=== PATIENT | female | born 1985 | race Caucasian/White ===

== ENCOUNTER 2024-07-29 12:24 | Emergency (ER) | payer OTHER, SELFPAY ==
[2024-07-29] VITALS (11 sets, daily range): BP systolic 93–133; BP diastolic 55–75; PULSE 94–208; RESP 14–22; TEMP 36.9; O2SAT 98–100; BMI 27.4
--- NOTE | 2024-07-29 12:30 | EKG_ITS ---
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
--- NOTE | 2024-07-29 12:30 | DI.RAD.S_ITS ---
PROCEDURE: XR CHEST 1V INDICATIONS: chest pain TECHNIQUE: One view of the chest was acquired. COMPARISON: None. FINDINGS: Surgical changes and devices: None. Lungs and pleura: Lungs are clear. No pleural effusions or pneumothorax. Mediastinum: Mediastinal contours appear normal. Heart size is normal. Bones and chest wall: No suspicious bony lesions. Overlying soft tissues appear unremarkable. IMPRESSION: No acute cardiopulmonary pathology. Dictated by: Richard Jacob M.D. on 07/29/2024 at 12:57 Approved by: Richard Jacob M.D. on 07/29/2024 at 12:57
[2024-07-29 12:44] LABS: Add Manual Diff / Slide Review NO; Basophils Absolute Auto 100 /uL (0-100); Basophils Percent Auto 0.9 % (0-2); Eosinophils Absolute Auto 100 /uL (0-450); Eosinophils Percent Auto 0.8 % (2-4); Hemoglobin 12.9 g/dL (12.0-16.0); Lymphocytes Absolute Auto 2600 /uL (1100-4500); Lymphocytes Percent Auto 31.7 % (25-40); Mean Corpuscular HGB Conc 33.1 % (30-36); Mean Corpuscular Hemoglobin 28.2 PG (26-34); Mean Corpuscular Volume 85.3 fL (80-100); Monocytes Absolute Auto 600 /uL (0-900); Monocytes Percent Auto 7.8 % (3-14); Neutrophils Absolute Auto 4800 /uL (1500-7000); Neutrophils Percent Auto 58.8 % (50-75); Platelet Count 273 X10^3/uL (150-400); Red Blood Cell Count 4.57 X10^6/uL (4.0-5.2); White Blood Cell Count 8.1 X10^3/uL (4.5-11.0)
[2024-07-29] MEDS: ADENOSINE 6 MG/2 ML VIAL IV (12:44)
[2024-07-29 12:51] LABS: INR 1.1 (0.9-1.3); Prothrombin Time 12.9 SECONDS (9.4-12.5)
[2024-07-29 12:54] LABS: PTT Partial Thromboplastin Tim 35 SECONDS (25.1-36.5)
--- NOTE | 2024-07-29 12:55 | EKG_ITS ---
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
[2024-07-29 12:56] LABS: Alanine Aminotransferase 59 IU/L (<35); Albumin 4.4 g/dL (3.5-5.0); Albumin Globulin Ratio 1.3 (1.0-2.8); Alkaline Phosphatase 84 U/L (38-126); Aspartate Aminotransferase 54 IU/L (14-36); BUN Creatinine Ratio 9.1 (6-22); Bilirubin Total 0.5 mg/dL (0.2-1.3); Blood Urea Nitrogen 6 mg/dL (7-17); Calcium 8.8 mg/dL (8.4-10.2); Carbon Dioxide 26 mmol/L (22-32); Chloride 102 mmol/L (98-107); Creatine Kinase 94 U/L (30-135); Estimated Glomerular Filt Rate > 60 mL/min (>60); Globulin 3.4 g/dL (1.7-4.1); Glucose 134 mg/dL (70-100); HEMOLYSIS < 15 (0-50); Lipase 60 U/L (23-300); Magnesium 1.8 mg/dL (1.6-2.3); Potassium 3.3 mmol/L (3.4-5.1); Sodium 138 mmol/L (137-145); Total Protein 7.8 g/dL (6.3-8.2)
--- NOTE | 2024-07-29 13:00 | ED.GENADULT ---
HPI - General Adult General Chief complaint: Chest Pain Stated complaint: rapid heart beat x 2 days Time Seen by Provider: 07/29/24 12:33 Source: patient Mode of arrival: Ambulatory History of Present Illness HPI narrative: 39-year-old woman with occasional episodes of SVT typically lasting minutes and resolved with breathing techniques comes in with a rapid heart rate that has been for around 56 hours. She is complaining of some chest pressure and fatigue developing over the last couple of hours prompted the ER visit. No nausea, vomiting, shortness of breath, lower extremity edema. Related Data Previous Rx's Medication Instructions Recorded furosemide 20 mg tablet 20 mg PO DAILY #5 tabs 07/29/24 Allergies Allergy/AdvReac Type Severity Reaction Status Date / Time Penicillins Allergy Unknown Verified 07/29/24 13:34 Review of Systems Review of Systems Narrative: Pertinent positive and negative findings as per HPI Patient History Social History Smoking Status: Never smoker Smoking Status: Never smoker Exam Initial Vital Signs Initial Vital Signs: Vital Signs Temperature 98.5 F 07/29/24 12:33 Pulse Rate 208 H 07/29/24 12:33 Respiratory Rate 17 07/29/24 12:33 Blood Pressure 133/75 07/29/24 12:33 Pulse Oximetry 100 07/29/24 12:33 Oxygen Delivery Method Room Air 07/29/24 12:33 General: Healthy appearing, in no acute distress. Able to give a complete and coherent history. Well-nourished well-developed HEENT: Moist mucous membranes, normal sclera with reactive pupils, Neck: No JVD, supple Respiratory: Lungs are clear to auscultation, no wheezing no rales no rhonchi. Full and symmetrical air movement Cardiac: Significant tachycardia Abdomen: Soft, nontender, no rebound or guarding, no flank pain Skin: Warm and dry, no rashes Neurologic: Grossly neurologically intact with no obvious asymmetries or abnormalities Extremities: No trauma, well perfused Psych: Cooperative, appropriate insight and affect Course Orders Ordered: ED Orders 07/29/24 12:30 XR chest 1V Stat Complete Blood Count AUTO DIFF Stat Comprehensive Metabolic Panel Stat Lipase Stat Magnesium Stat NT-proBNP (BNP-Adult 18+) Stat PTT Partial Thromboplastin Sesar Stat Prothrombin Time INR Stat Troponin & CK Cardiac Panel Stat EKG-12 Lead Stat Discontinued Medications Adenosine (Adenosine 6 Mg/2 Ml Vial) 6 mg IV NOW ONE Stop: 07/29/24 12:40 Last Admin: 07/29/24 12:44 Dose: 6 mg Documented By: MARYBETH Adenosine (Adenosine 6 Mg/2 Ml Vial) 12 mg IV NOW ONE Stop: 07/29/24 12:40 Aspirin (Aspirin 81 Mg Chew Tab) 324 mg PO NOW ONE Stop: 07/29/24 12:31 Vital Signs Vital signs: Vital Signs - 8 hr 07/29/24 12:33 Temperature 98.5 F Pulse Rate 208 H Respiratory Rate 17 Blood Pressure 133/75 Pulse Oximetry 100 Oxygen Delivery Method Room Air Medical Decision Making Lab Data 07/29/24 12:20 07/29/24 12:20 Labs: Lab Results 07/29/24 Range/Units 12:20 WBC 8.1 (4.5-11.0) X10^3/uL RBC 4.57 (4.0-5.2) X10^6/uL Hgb 12.9 (12.0-16.0) g/dL Hct 39.0 (36-46) % MCV 85.3 (80-100) fL MCH 28.2 (26-34) PG MCHC 33.1 (30-36) % RDW 15.0 H (11.6-14.8) % Plt Count 273 (150-400) X10^3/uL Neut % (Auto) 58.8 (50-75) % Lymph % (Auto) 31.7 (25-40) % [place] % (Auto) 7.8 (3-14) % Eos % (Auto) 0.8 L (2-4) % Baso % (Auto) 0.9 (0-2) % Neut # (Auto) 4800 (3285-6970) /uL Lymph # (Auto) 2600 (0386-7458) /uL [place] # (Auto) 600 (0-900) /uL Eos # (Auto) 100 (0-450) /uL Baso # (Auto) 100 (0-100) /uL PT 12.9 H (9.4-12.5) SECONDS INR 1.1 (0.9-1.3) APTT 35 (25.1-36.5) SECONDS Sodium 138 (137-145) mmol/L Potassium 3.3 L (3.4-5.1) mmol/L Chloride 102 (98-107) mmol/L Carbon Dioxide 26 (22-32) mmol/L BUN 6 L (7-17) mg/dL Creatinine 0.66 (0.52-1.04) mg/dL Estimated GFR > 60 (>60) mL/min BUN/Creatinine Ratio 9.1 (6-22) Glucose 134 H (70-100) mg/dL Calcium 8.8 (8.4-10.2) mg/dL Magnesium 1.8 (1.6-2.3) mg/dL Total Bilirubin 0.5 (0.2-1.3) mg/dL AST 54 H (14-36) IU/L ALT 59 H (<35) IU/L Alkaline Phosphatase 84 (38-126) U/L Total Creatine Kinase 94 (30-135) U/L Total Protein 7.8 (6.3-8.2) g/dL Albumin 4.4 (3.5-5.0) g/dL Globulin 3.4 (1.7-4.1) g/dL Albumin/Globulin Ratio 1.3 (1.0-2.8) Lipase 60 (23-300) U/L [facility] Narrative Medical decision making narrative: CC: SVT currently rate of 207 present for almost 56 hours Complicating co-morbidities: No medications, has never had an episode of SVT last so long Data collected from: patient Social determinants of health that may influence the patients condition: Patient is currently visiting from out of town Differential considered: SVT, atrial fibrillation, WPW with aberrancy Exam documented above, pertinent findings include: Aside from heart rate over 200, exam is entirely unremarkable. No secondary signs or symptoms of congestive heart failure Lab Test results independently reviewed as above. Pertinent findings: CBC is unremarkable Chemistries show slightly low potassium at 3.3. Renal function is appropriate. Mild elevation to AST at 54 and ALT at 59. Lipase is normal Troponin is undetectable ProBNP is elevated at 2530 Independently reviewed EKG: Initial EKG shows heart rate of 207, supraventricular tachycardia After cardioversion, she is down to sinus tachycardia at a rate of 107 Imaging studies independently reviewed: Chest x-ray is unremarkable Treatments: 6 mg of IV adenosine is given with SVT interruption and returned to normal sinus rhythm Discussion: 39-year-old woman comes in with more than 48 hours of SVT in the greater than 200 range. We attempted vagal maneuvers and elevating her legs with no effect. She was given 6 mg of IV adenosine which converted her back to sinus rhythm. Blood work shows no evidence of acute coronary syndrome or elevated troponin however her BNP is slightly elevated and I suspect that that is rate-related bump. She does not have significant signs of congestive heart failure on her physical exam. He is findings were reviewed with her, she is given 20 mg of IV Lasix in the emergency department and we will give her an additional 5 tablets of Lasix for the next 5 days. With normal renal function and such a short course I do not think that additional potassium supplementation will be required. Did suggest that if she has recurrent SVT with a heart rate this high she probably should not wait any longer than 24 hours before seeking help. She notes that she usually can easily count her heart rate, but was not sure if it was fast because she could not find it to count it. I pointed out that means it is going really fast. She will follow up with your primary care provider, she is currently traveling and heading home. There was no indication for hospitalization or further workup at this time Discharge Plan Departure Patient Disposition: Home Clinical Impression: Sustained SVT, Elevated brain natriuretic peptide (BNP) level Instructions: Paroxysmal Supraventricular Tachycardia, DI for Heart Failure Activity Restrictions/Additional Instructions: Thank you for coming in today You were in a supraventricular tachycardia at a rate over 200 for 2.5 days. That is pretty impressive. We used 6 mg of adenosine to have your rhythm. And restart into a normal sinus rhythm. You tolerated this nicely. In checking blood work I am seeing no signs of cardiac injury or damage however there is suggestion that your heart was going fast enough that fluid has started to back up into your lungs. You do not have significant findings on your clinical exam to suggest heart failure. I am going to give you 5 days of furosemide, a water pill. This will help pull some of the fluid out of the lungs so that you are able to pee at out. Having your heart back in its regular rhythm and working appropriately is going to do the majority of the work. You mentioned that you were not sure if you are heart was going fast because you could not count it. In the future, if you are wondering if you are heart is going that fast and you can not feel it, it is going way too fast. If this happens again, I would not wait longer than 24 hours before coming to an emergency department if you are unable to change the rhythm with breathing methods you were appropriately using If you find that you are getting worse or develop any new symptoms, please feel free to return to the emergency department for further evaluation. Prescriptions: New furosemide 20 mg tablet 20 mg PO DAILY Qty: 5 0RF Referrals: Miscellaneous,Doctor, MD [Primary Care Provider] - Stand Alone Forms: Patient Portal/API/Survey
[2024-07-29 13:07] LABS: NT-proBNP (BNP-Adult 18+) 2530 pg/mL (<125)
[2024-07-29] MEDS: FUROSEMIDE 40 MG/4 ML VIAL 20 MG IV (14:15)
== END 2024-07-29 15:02 | disposition home or self-care (01) ==
PROVIDERS: Emergency Provider Emergency Medicine
DX: I47.19 Other supraventricular tachycardia (principal); R79.89 Other specified abnormal findings of blood chemistry
CPT/HCPCS: 36415; 71045; 80053; 82550; 83690; 83735; 83880; 84484; 85025; 85610; 85730; 93005; 96374; 96375; 99284; J0153; J1940

== ENCOUNTER 2024-07-30 22:24 | Emergency (ER) | payer OTHER, SELFPAY ==
[2024-07-30] VITALS (10 sets, daily range): BP systolic 95–133; BP diastolic 59–73; PULSE 98–211; RESP 8–20; TEMP 37; O2SAT 96–100; BMI 31.8
--- NOTE | 2024-07-30 22:29 | EKG_ITS ---
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
--- NOTE | 2024-07-30 22:36 | ED.ARRPALP ---
HPI - Arrhythmia/Palpitations General Chief Complaint: Arrhythmia/Palpitations Stated Complaint: heart is beating fast again Time Seen by Provider: 07/30/24 22:35 History of Present Illness HPI narrative: Patient is a 39-year-old female history of SVT presenting for the 2nd time in 2 days with SVT. She was seen evaluated yesterday for the same. She was given adenosine found to have an elevated BNP and started on Lasix. She is currently visiting her sister from [place] she was got here few days ago and leaves in 2 days. She currently has a heart rate greater than 200. She says it has been like this for couple of hours typically it just goes away she was not passed out no other symptoms. 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 [place] Related Data Previous Rx's Medication Instructions Recorded furosemide 20 mg tablet 20 mg PO DAILY #5 tabs 07/29/24 metoprolol succinate 25 mg 12.5 mg (1/2 x 25 mg) PO DAILY #10 07/31/24 tablet,extended release 24 hr tabs Allergies Allergy/AdvReac Type Severity Reaction Status Date / Time Penicillins Allergy Unknown Verified 07/29/24 13:34 Patient History Social History Smoking Status: Never smoker Smoking Status: Never smoker Exam Initial Vital Signs Initial Vital Signs: Vital Signs Temperature 98.6 F 07/30/24 22:30 Pulse Rate 211 H 07/30/24 22:30 Respiratory Rate 20 07/30/24 22:30 Blood Pressure 133/73 07/30/24 22:30 Pulse Oximetry 100 07/30/24 22:30 Oxygen Delivery Method Room Air 07/30/24 22:30 GENERAL: Alert pleasant 39-year-old female and in no acute distress. HEENT: Head atraumatic,EOMI, pupils reactive, face symmetric, moist mucous membranes CARDIOVASCULAR: Regular rate and rhythm without murmurs, rubs or gallops. RESPIRATORY: Breath sounds equal bilaterally, no wheezes rales or rhonchi. ABDOMEN: Soft, nontender. Normoactive bowel sounds all 4 quadrants. No guarding or rebound. EXTREMITIES: Normal range of motion, no clubbing or edema. Neurovascularly intact NEUROLOGICAL: Alert and oriented x4.Normal gait and speech. Cranial nerves II through XII grossly intact. SKIN: Warm, dry, no laceration, no petechiae, no rashes or lesions. Course Orders Ordered: ED Orders 07/30/24 22:29 EKG-12 Lead Stat 07/30/24 22:32 BNP [NT-proBNP (BNP-Adult 18+)] Stat CBC Auto Diff [Complete Blood Count AUTO DIFF] Stat CMP [Comprehensive Metabolic Panel] Stat D Dimer Stat Troponin & CK Cardiac Panel Stat 07/30/24 22:37 EKG-12 Lead Stat Discontinued Medications Diltiazem HCl (Diltiazem 25 Mg/5 Ml Sdv) 10 mg IV NOW ONE Stop: 07/30/24 22:36 Last Admin: 07/30/24 22:38 Dose: 10 mg Metoprolol Succinate (Metoprolol Er 25 Mg Tablet) 25 mg PO NOW ONE Stop: 07/30/24 23:09 Last Admin: 07/30/24 23:14 Dose: 25 mg Vital Signs Vital signs: Vital Signs - 8 hr 07/30/24 22:30 07/30/24 22:31 07/30/24 22:33 Temperature 98.6 F Pulse Rate 211 H 209 H Respiratory Rate 20 Blood Pressure 133/73 113/73 Pulse Oximetry 100 100 Oxygen Delivery Method Room Air 07/30/24 22:33 07/30/24 22:44 07/30/24 22:48 Temperature Pulse Rate 210 H 98 H Respiratory Rate Blood Pressure 108/59 L Pulse Oximetry 100 Oxygen Delivery Method 07/30/24 22:48 07/30/24 22:58 07/30/24 23:00 Temperature Pulse Rate 98 H 105 H Respiratory Rate 10 L Blood Pressure 98/61 Pulse Oximetry 96 Oxygen Delivery Method Room Air 07/30/24 23:00 07/30/24 23:14 07/30/24 23:30 Temperature Pulse Rate 103 H 107 H 109 H Respiratory Rate 8 L 13 Blood Pressure 98/61 Pulse Oximetry 96 99 Oxygen Delivery Method 07/30/24 23:30 07/30/24 23:58 07/30/24 23:58 Temperature Pulse Rate 108 H Respiratory Rate 16 Blood Pressure 95/64 101/68 Pulse Oximetry 98 Oxygen Delivery Method 07/31/24 00:00 07/31/24 00:00 Temperature Pulse Rate 106 H Respiratory Rate 18 Blood Pressure 103/71 Pulse Oximetry 98 Oxygen Delivery Method MDM - Arrhythmia/Palpitations Lab Data 07/30/24 22:32 03/17/25 22:32 Labs: Lab Results 07/30/24 Range/Units 22:32 WBC 6.9 (4.5-11.0) X10^3/uL RBC 4.47 (4.0-5.2) X10^6/uL Hgb 12.7 (12.0-16.0) g/dL Hct 37.9 (36-46) % MCV 84.9 (80-100) fL MCH 28.3 (26-34) PG MCHC 33.4 (30-36) % RDW 15.0 H (11.6-14.8) % Plt Count 302 (150-400) X10^3/uL Neut % (Auto) 48.2 L (50-75) % Lymph % (Auto) 40.2 H (25-40) % [place] % (Auto) 8.2 (3-14) % Eos % (Auto) 2.4 (2-4) % Baso % (Auto) 1.0 (0-2) % Neut # (Auto) 3300 (6298-3607) /uL Lymph # (Auto) 2800 (2621-8666) /uL [place] # (Auto) 600 (0-900) /uL Eos # (Auto) 200 (0-450) /uL Baso # (Auto) 100 (0-100) /uL D-Dimer 216 (<500) ng/ml Sodium 142 (137-145) mmol/L Potassium 3.3 L (3.4-5.1) mmol/L Chloride 103 (98-107) mmol/L Carbon Dioxide 31 (22-32) mmol/L BUN 14 (7-17) mg/dL Creatinine 0.86 (0.52-1.04) mg/dL Estimated GFR > 60 (>60) mL/min BUN/Creatinine Ratio 16.3 (6-22) Glucose 152 H (70-100) mg/dL Calcium 9.6 (8.4-10.2) mg/dL Total Bilirubin 0.1 L (0.2-1.3) mg/dL AST 46 H (14-36) IU/L ALT 51 H (<35) IU/L Alkaline Phosphatase 99 (38-126) U/L Total Creatine Kinase 105 (30-135) U/L Troponin I 0.012 (0.01-0.034) ng/mL NT-Pro-B Natriuret Pep 2400 H (<125) pg/mL Total Protein 8.0 (6.3-8.2) g/dL Albumin 4.4 (3.5-5.0) g/dL Globulin 3.6 (1.7-4.1) g/dL Albumin/Globulin Ratio 1.2 (1.0-2.8) ECG Data Interpretation: SVT rate 206 MDM Narrative Medical decision making narrative: 39-year-old female history of SVT presents today with SVT. She was hooked up to the monitor found to have heart rate to 11/04/2010. Vagal maneuvers tried but failed. She was ultimately given 10 mg of diltiazem and quickly converted. Blood work has been reviewed she does have persistently elevated BNP though it is coming down it was 2530 in his now 2400. Troponin is negative Other electrolytes are all within normal limits She was monitored cerumen sinus rhythm but persistently tachycardic 104-109. Blood pressure is also low sometimes systolic in the 90s and goes up to 103. She reports that she generally has a lobe pressure. She was given 25 mg of metoprolol here to also slow the heart rate. Discussed with her taking metoprolol at home although hesitant due to some low blood pressures. I discussed with her that she needs to go get a blood pressure cough check her blood pressure and she was given parameters to take it. She needs to follow up with Cardiology she understands this. She was also on Lasix which seems to be helping. She understands that she needs echocardiogram as well. Overall she is feeling significantly better and would like to go home Discharge Plan Departure Patient Disposition: Home Clinical Impression: Supraventricular tachycardia, Elevated brain natriuretic peptide (BNP) level Instructions: DI for Paroxysmal Supraventricular Tachycardia Activity Restrictions/Additional Instructions: *You have been diagnosed with SVT *What to do: At this time please call cardiology in [place] tomorrow to schedule follow-up appointment. *Continue to take medications as directed Metformin 12.5 mg daily, only if blood pressure is higher than 100/80, if blood pressure is below 100 do not take You may try and take 1 or 2 tablets if you feel like your heart is racing and do are in SVT *Follow up with your primary care provider in 2-3 days or call [phone] *Return to ER if you should have passing out dizziness lightheadedness chest pain or any new, worsening or concerning symptoms Prescriptions: New metoprolol succinate 25 mg tablet extended release 24 hr 12.5 mg PO DAILY Qty: 10 0RF No Action furosemide 20 mg tablet 20 mg PO DAILY Qty: 5 0RF Referrals: Miscellaneous,Doctor, [Primary Care Provider] - Stand Alone Forms: Patient Portal/API/Survey
[2024-07-30] MEDS: dilTIAZem 25 MG/5 ML SDV 10 MG IV (22:38)
[2024-07-30 22:42] LABS: Add Manual Diff / Slide Review NO; Basophils Absolute Auto 100 /uL (0-100); Eosinophils Absolute Auto 200 /uL (0-450); Eosinophils Percent Auto 2.4 % (2-4); Hematocrit 37.9 % (36-46); Hemoglobin 12.7 g/dL (12.0-16.0); Lymphocytes Absolute Auto 2800 /uL (1100-4500); Lymphocytes Percent Auto 40.2 % (25-40); Mean Corpuscular HGB Conc 33.4 % (30-36); Mean Corpuscular Hemoglobin 28.3 PG (26-34); Mean Corpuscular Volume 84.9 fL (80-100); Monocytes Absolute Auto 600 /uL (0-900); Monocytes Percent Auto 8.2 % (3-14); Neutrophils Absolute Auto 3300 /uL (1500-7000); Neutrophils Percent Auto 48.2 % (50-75); Platelet Count 302 X10^3/uL (150-400); Red Blood Cell Count 4.47 X10^6/uL (4.0-5.2); White Blood Cell Count 6.9 X10^3/uL (4.5-11.0)
--- NOTE | 2024-07-30 22:44 | PC.NURSE ---
Pt came in with HR in low 200s. EKG, line/lab done in room 1. 10mg Diltiazem given iv; within one minute she converted to NSR, HR in high 90s.
[2024-07-30 22:50] LABS: Alanine Aminotransferase 51 IU/L (<35); Albumin 4.4 g/dL (3.5-5.0); Albumin Globulin Ratio 1.2 (1.0-2.8); Alkaline Phosphatase 99 U/L (38-126); Aspartate Aminotransferase 46 IU/L (14-36); BUN Creatinine Ratio 16.3 (6-22); Bilirubin Total 0.1 mg/dL (0.2-1.3); Blood Urea Nitrogen 14 mg/dL (7-17); Calcium 9.6 mg/dL (8.4-10.2); Carbon Dioxide 31 mmol/L (22-32); Chloride 103 mmol/L (98-107); Creatine Kinase 105 U/L (30-135); Estimated Glomerular Filt Rate > 60 mL/min (>60); Globulin 3.6 g/dL (1.7-4.1); Glucose 152 mg/dL (70-100); HEMOLYSIS < 15 (0-50); Potassium 3.3 mmol/L (3.4-5.1); Sodium 142 mmol/L (137-145)
[2024-07-30 23:01] LABS: D Dimer 216 ng/ml (<500); NT-proBNP (BNP-Adult 18+) 2400 pg/mL (<125); Troponin I 0.012 ng/mL (0.01-0.034)
[2024-07-30] MEDS: METOPROLOL ER 25 MG TABLET PO (23:14)
[2024-07-31] VITALS: BP 103/71; PULSE 106; RESP 18; O2SAT 98
== END 2024-07-31 00:19 | disposition home or self-care (01) ==
PROVIDERS: Emergency Provider Emergency Medicine
DX: I47.10 Supraventricular tachycardia, unspecified (principal); R79.89 Other specified abnormal findings of blood chemistry
CPT/HCPCS: 36415; 80053; 82550; 83880; 84484; 85025; 85379; 93005; 93010; 96374; 99284